=== PATIENT | female | born 1945 | race Caucasian/White ===

== ENCOUNTER 2018-07-30 01:16 | Inpatient (IN) | payer OTHER ==
[2018-07-30] VITALS (18 sets, daily range): BP systolic 89–107; BP diastolic 39–64
[~2018-07-30] VITALS: Ht 172.7 cm; Wt 80.1 kg
[2018-07-30 01:55] LABS: Basophils # (auto) 0.1 uL; Eosinophils # (auto) 0 uL; Eosinophils % (auto) 0.4 % (0.0-7.0); Hematocrit 22.1 % (36.0-46.0); Mean Corpuscular Volume 91.5 fL (80.0-100.0); Neutrophils # (auto) 4.8 uL; Nucleated Red Blood Cells % 0.2 %; White Blood Cell 6.9 10^3/uL (4.4-10.8)
[2018-07-30 01:57] LABS: Lymphocytes # (auto) 1.3 uL; Mean Corpuscular Hgb Conc. 30.6 g/dL (32.0-36.0); Monocytes # (auto) 0.7 uL; Monocytes % (auto) 10.7 % (0.0-12.0); Neutrophils % (auto) 69.9 % (37.0-80.0); Platelet Count (auto) 103 10^3/uL (140-450); Red Blood Cells 2.41 10^6/uL (4.0-5.20)
[2018-07-30 02:11] LABS: Albumin 2.2 g/dL (3.4-5.0); BUN/Creatinine Ratio 30.3; Calcium 9.2 mg/dL (8.5-10.1); Magnesium 2.1 mg/dL (1.6-2.6); Potassium 3.4 mmol/L (3.5-5.1)
[2018-07-30 02:14] LABS: Bilirubin, Total 1.1 mg/dL (0.2-1.0); Total Protein 6.6 g/dL (6.4-8.2)
[2018-07-30 02:27] LABS: Hemoglobin 6.7 g/dL (12.2-16.2)
[2018-07-30 03:56] LABS: INR 1.13 (0.9-1.15); Partial Thromboplastin Time 22.2 sec (23.78-33.04)
[2018-07-30] MEDS ORDERED: POTASSIUM EFFERVESENT TAB 25 MEQ PO ONE (10:15)
[2018-07-30 10:31] LABS: Urine Bacteria FEW /hpf (None Seen); Urine Blood Negative /uL (Negative); Urine Mucus FEW (None Seen); Urine Specific Gravity 1.014 (1.001-1.035); Urine WBC 1 /hpf (0 - 5)
[2018-07-30] MEDS ORDERED: LEVOFLOXACIN 250MG 50 ML IV ONE (10:45)
[2018-07-30] MEDS ORDERED: HYDROcodone-ACET 7.5/325MG TAB PO PRN (10:45)
[2018-07-30] MEDS ORDERED: LEVOTHYROXINE SODIUM 88 MCG TAB PO ONE (10:45)
[2018-07-30] MEDS ORDERED: SPIRONOLACTONE 25 MG TAB PO ONE (11:00)
[2018-07-30] MEDS ORDERED: TEMAZEPAM 15 MG CAP PO PRN (11:00)
[2018-07-30] MEDS ORDERED: DEXTROSE (50%) 50ML SYRG IV PRN (11:00)
[2018-07-30] MEDS ORDERED: MORPHINE SULF INJ 2 MG/ML SYRINGE 1ML IV PRN ×2 (11:00)
[2018-07-30] MEDS ORDERED: PANTOPRAZOLE 40 MG TAB PO ONE (11:00)
[2018-07-30] MEDS ORDERED: DOCUSATE SOD 100 MG CAP PO PRN (11:00)
[2018-07-30] MEDS ORDERED: POTASSIUM CHL 20 Meq TABLET PO ONE (11:00)
[2018-07-30] MEDS ORDERED: NITROGLYCERIN 0.4 MG SL TAB SL PRN (11:00)
[2018-07-30] MEDS ORDERED: FUROSEMIDE 40 MG TAB PO ONE (11:00)
[2018-07-30] MEDS ORDERED: ACETAMINOPHEN 325 MG TAB PO PRN (11:00)
[2018-07-30] MEDS: SODIUM CHLORIDE 0.9% 1,000 ML IV SCH (12:12)
[2018-07-30] MEDS: PANCREATIC ENZYMES 4200 UNIT CAP PO SCH ×2 (12:13→18:00)
[2018-07-30] MEDS: CALCIUM W/VIT D (600MG/400IU) TAB PO SCH ×2 (12:13→17:32)
[2018-07-30] MEDS: Glucerna Carbsteady SHAKE Vanilla 8oz PO SCH ×3 (12:13→22:00)
[2018-07-30] MEDS: InsuLIN REG 1unit/0.01ml Soln (100units/ml) SC SCH ×3 (12:23→22:24)
[2018-07-30] MEDS: ACCU-CHEK COMFORT CURVE STRIP VI SCH ×3 (12:24→22:18)
[2018-07-30 12:57] LABS: Lactic Acid w/Reflex 2.5 mmol/L (0.4-2.0)
[2018-07-30] MEDS ORDERED: PERCOT PO (14:49)
[2018-07-30] MEDS ORDERED: FERR27TA2 PO (14:49)
[2018-07-30] MEDS ORDERED: METF-370 PO (14:49)
[2018-07-30] MEDS ORDERED: MULTLIQ38 OR (14:49)
[2018-07-30] MEDS ORDERED: PANC3600 OR (14:49)
[2018-07-30] MEDS ORDERED: ASPI81TA27 PO (14:49)
[2018-07-30] MEDS ORDERED: LEVO88TA4 PO (14:49)
[2018-07-30] MEDS ORDERED: FURO40TA4 PO (14:49)
[2018-07-30] MEDS ORDERED: POTA10TA51 PO (14:49)
[2018-07-30] MEDS: CLINDAMYCIN 300MG IV 50 ML IV SCH ×2 (15:59→23:19)
[2018-07-30] MEDS: metroNIDAZOLE 500MG/100ML 100 ML IV SCH ×2 (17:03→22:04)
[2018-07-30 17:20] LABS: Hematocrit 27.7 % (36.0-46.0); Hemoglobin 9.1 g/dL (12.2-16.2)
[2018-07-30] MEDS: FERROUS SULFATE 325 MG TAB PO SCH (17:32)
[2018-07-30] MEDS: FUROSEMIDE 40 MG TAB PO SCH (17:33)
[2018-07-30 17:36] LABS: Lactic Acid w/Reflex 3.6 mmol/L (0.4-2.0)
[2018-07-30 17:44] LABS: BUN/Creatinine Ratio 27.9; Calcium 9.1 mg/dL (8.5-10.1); Potassium 3.4 mmol/L (3.5-5.1)
[2018-07-30] MEDS ORDERED: ACETAMINOPHEN PO SCH (22:00)
[2018-07-30] MEDS ORDERED: OXYCODONE PO SCH (22:00)
[2018-07-30] MEDS ORDERED: FAMOTIDINE 20 MG TAB PO SCH (22:00)
[2018-07-30] MEDS: ASCORBIC ACID 500 MG TAB PO SCH (22:00)
[2018-07-30 22:38] LABS: Hematocrit 27.6 % (36.0-46.0)
[2018-07-31 04:53] VITALS: BP 87/48
[2018-07-31] MEDS: metroNIDAZOLE 500MG/100ML 100 ML IV SCH ×3 (05:21→22:21)
[2018-07-31] MEDS: Glucerna Carbsteady SHAKE Vanilla 8oz PO SCH ×4 (05:21→22:00)
[2018-07-31] MEDS: FUROSEMIDE 40 MG TAB PO SCH ×2 (06:00→18:00)
[2018-07-31 06:12] LABS: Basophils # (auto) 0 uL; Basophils % (auto) 0.3 % (0.0-2.0); Eosinophils # (auto) 0.1 uL; Eosinophils % (auto) 0.9 % (0.0-7.0); Hematocrit 26.9 % (36.0-46.0); Hemoglobin 8.7 g/dL (12.2-16.2); Lymphocytes # (auto) 1.3 uL; Lymphocytes % (auto) 19.8 % (10.0-50.0); Mean Corpuscular Hemoglobin 28.3 pg (28.0-32.0); Mean Corpuscular Hgb Conc. 32.5 g/dL (32.0-36.0); Monocytes # (auto) 0.8 uL; Monocytes % (auto) 12.2 % (0.0-12.0); Neutrophils # (auto) 4.5 uL; Neutrophils % (auto) 66.8 % (37.0-80.0); Nucleated Red Blood Cells % 0.5 %; Platelet Count (auto) 115 10^3/uL (140-450); Red Blood Cells 3.09 10^6/uL (4.0-5.20); Red Cell Distribution Width 18.7 % (11.8-14.3); White Blood Cell 6.8 10^3/uL (4.4-10.8)
[2018-07-31 06:36] LABS: Potassium 3.7 mmol/L (3.5-5.1)
[2018-07-31] MEDS: LEVOTHYROXINE SODIUM 88 MCG TAB PO SCH (06:36)
[2018-07-31] MEDS: ACCU-CHEK COMFORT CURVE STRIP VI SCH ×4 (06:43→22:22)
[2018-07-31] MEDS: InsuLIN REG 1unit/0.01ml Soln (100units/ml) SC SCH ×4 (06:50→22:22)
[2018-07-31 06:52] LABS: Albumin 2.3 g/dL (3.4-5.0); BUN/Creatinine Ratio 27.3; Bilirubin, Total 1.4 mg/dL (0.2-1.0); Calcium 9.7 mg/dL (8.5-10.1); Total Protein 6.7 g/dL (6.4-8.2)
[2018-07-31] MEDS: PANCREATIC ENZYMES 4200 UNIT CAP PO SCH ×3 (08:00→18:00)
[2018-07-31 08:57] VITALS: BP 100/60
[2018-07-31] MEDS: CALCIUM W/VIT D (600MG/400IU) TAB PO SCH ×3 (09:26→18:00)
[2018-07-31] MEDS: cefTRIAXone 1GM/10ml IVPUSH 10 ML IV SCH (09:26)
[2018-07-31] MEDS: FERROUS SULFATE 325 MG TAB PO SCH ×2 (09:27→18:00)
[2018-07-31] MEDS ORDERED: LEVOFLOXACIN 250MG 50 ML IV SCH (10:00)
[2018-07-31] MEDS: ZINC SULFATE 220mg CAP or TAB PO SCH (10:13)
[2018-07-31] MEDS: ASCORBIC ACID 500 MG TAB PO SCH ×2 (10:13→22:22)
[2018-07-31] MEDS: POTASSIUM CHL 20 Meq TABLET PO SCH (10:13)
[2018-07-31] MEDS: MULTIPLE VITAMIN TAB PO SCH (10:13)
[2018-07-31] MEDS: SPIRONOLACTONE 25 MG TAB PO SCH (10:14)
[2018-07-31] MEDS: PANTOPRAZOLE 40 MG TAB PO SCH (10:14)
[2018-07-31] MEDS: SODIUM CHLORIDE 0.9% 1,000 ML IV SCH (10:54)
[2018-07-31] MEDS: ONDANSETRON HCL 4 MG/2 ML VIAL IV PRN ×2 (11:34→21:35)
[2018-07-31 12:38] VITALS: BP 90/50
[2018-07-31] MEDS: OXYCODONE W/ ACETAMINOPHEN 5/325MG TABLET PO SCH ×2 (13:45→22:21)
[2018-07-31 17:36] VITALS: BP 90/58
[2018-07-31 22:00] VITALS: BP 86/44
[2018-07-31 22:55] VITALS: BP 89/51
[2018-08-01 05:30] VITALS: BP 89/54
[2018-08-01 05:48] VITALS: BP 83/41
[2018-08-01] MEDS: FUROSEMIDE 40 MG TAB PO SCH ×2 (06:00→17:44)
[2018-08-01] MEDS: metroNIDAZOLE 500MG/100ML 100 ML IV SCH ×3 (06:03→21:50)
[2018-08-01] MEDS: OXYCODONE W/ ACETAMINOPHEN 5/325MG TABLET PO SCH ×3 (06:04→21:51)
[2018-08-01] MEDS: Glucerna Carbsteady SHAKE Vanilla 8oz PO SCH ×4 (06:04→21:51)
[2018-08-01] MEDS: ACCU-CHEK COMFORT CURVE STRIP VI SCH ×4 (06:05→22:02)
[2018-08-01] MEDS: LEVOTHYROXINE SODIUM 88 MCG TAB PO SCH (06:05)
[2018-08-01] MEDS: InsuLIN REG 1unit/0.01ml Soln (100units/ml) SC SCH ×4 (06:06→22:02)
[2018-08-01 08:17] LABS: BUN/Creatinine Ratio 27.2; Calcium 8.9 mg/dL (8.5-10.1); Magnesium 2.3 mg/dL (1.6-2.6); Potassium 3.4 mmol/L (3.5-5.1)
[2018-08-01] MEDS: FERROUS SULFATE 325 MG TAB PO SCH ×2 (08:26→17:42)
[2018-08-01] MEDS: CALCIUM W/VIT D (600MG/400IU) TAB PO SCH ×3 (08:26→17:42)
[2018-08-01] MEDS: cefTRIAXone 1GM/10ml IVPUSH 10 ML IV SCH (08:27)
[2018-08-01] MEDS: PANCREATIC ENZYMES 4200 UNIT CAP PO SCH ×3 (08:27→17:45)
[2018-08-01 09:09] VITALS: BP 80/48
[2018-08-01 09:56] LABS: Basophils # (auto) 0 uL; Basophils % (auto) 0.1 % (0.0-2.0); Eosinophils # (auto) 0 uL; Hemoglobin 7.8 g/dL (12.2-16.2); Mean Corpuscular Volume 86.8 fL (80.0-100.0); Monocytes # (auto) 0.7 uL; Nucleated Red Blood Cells % 0.2 %
[2018-08-01 10:00] LABS: Hematocrit 24.3 % (36.0-46.0); Lymphocytes # (auto) 1.5 uL; Lymphocytes % (auto) 16.4 % (10.0-50.0); Mean Corpuscular Hemoglobin 27.9 pg (28.0-32.0); Mean Corpuscular Hgb Conc. 32.1 g/dL (32.0-36.0); Monocytes % (auto) 7.1 % (0.0-12.0); Neutrophils % (auto) 76.4 % (37.0-80.0); Red Cell Distribution Width 18.9 % (11.8-14.3); White Blood Cell 9.2 10^3/uL (4.4-10.8)
[2018-08-01 10:03] LABS: Platelet Count (auto) 62 10^3/uL (140-450)
[2018-08-01] MEDS: ZINC SULFATE 220mg CAP or TAB PO SCH (10:19)
[2018-08-01] MEDS: SPIRONOLACTONE 25 MG TAB PO SCH (10:19)
[2018-08-01] MEDS: MULTIPLE VITAMIN TAB PO SCH (10:20)
[2018-08-01] MEDS: POTASSIUM CHL 20 Meq TABLET PO SCH (10:20)
[2018-08-01] MEDS: PANTOPRAZOLE 40 MG TAB PO SCH (10:20)
[2018-08-01] MEDS: ASCORBIC ACID 500 MG TAB PO SCH ×2 (10:20→21:51)
[2018-08-01] MEDS: ONDANSETRON HCL 4 MG/2 ML VIAL IV PRN (10:24)
[2018-08-01 13:00] VITALS: BP 90/54
[2018-08-01] MEDS: SODIUM CHLORIDE 0.9% 1,000 ML IV SCH (14:10)
[2018-08-01 17:35] VITALS: BP 102/54
[2018-08-01 21:59] VITALS: BP 95/55
[2018-08-02 05:15] VITALS: BP 96/58
[2018-08-02 05:58] LABS: Basophils # (auto) 0 uL; Basophils % (auto) 0.2 % (0.0-2.0); Eosinophils # (auto) 0.1 uL; Hemoglobin 8.2 g/dL (12.2-16.2); Lymphocytes # (auto) 1.4 uL
[2018-08-02] MEDS: Glucerna Carbsteady SHAKE Vanilla 8oz PO SCH (06:00)
[2018-08-02 06:01] LABS: Eosinophils % (auto) 0.7 % (0.0-7.0); Lymphocytes % (auto) 17.3 % (10.0-50.0); Mean Corpuscular Hemoglobin 28.7 pg (28.0-32.0); Mean Corpuscular Hgb Conc. 32.8 g/dL (32.0-36.0); Mean Corpuscular Volume 87.7 fL (80.0-100.0); Monocytes % (auto) 12.4 % (0.0-12.0); Neutrophils # (auto) 5.5 uL; Neutrophils % (auto) 69.4 % (37.0-80.0); Nucleated Red Blood Cells % 0.1 %; Platelet Count (auto) 61 10^3/uL (140-450); Red Blood Cells 2.85 10^6/uL (4.0-5.20); Red Cell Distribution Width 18.7 % (11.8-14.3)
[2018-08-02] MEDS: FUROSEMIDE 40 MG TAB PO SCH ×2 (06:18→18:05)
[2018-08-02] MEDS: metroNIDAZOLE 500MG/100ML 100 ML IV SCH ×3 (06:18→21:13)
[2018-08-02] MEDS: LEVOTHYROXINE SODIUM 88 MCG TAB PO SCH (06:19)
[2018-08-02] MEDS: ACCU-CHEK COMFORT CURVE STRIP VI SCH ×4 (06:19→21:20)
[2018-08-02] MEDS: OXYCODONE W/ ACETAMINOPHEN 5/325MG TABLET PO SCH ×3 (06:19→21:13)
[2018-08-02 06:29] LABS: BUN/Creatinine Ratio 27.3; Calcium 8.6 mg/dL (8.5-10.1); Magnesium 2.2 mg/dL (1.6-2.6); Potassium 3.1 mmol/L (3.5-5.1)
[2018-08-02] MEDS: InsuLIN REG 1unit/0.01ml Soln (100units/ml) SC SCH ×4 (07:02→21:27)
[2018-08-02] MEDS: FERROUS SULFATE 325 MG TAB PO SCH ×2 (08:00→14:54)
[2018-08-02] MEDS: CALCIUM W/VIT D (600MG/400IU) TAB PO SCH ×3 (08:00→18:00)
[2018-08-02] MEDS: PANCREATIC ENZYMES 4200 UNIT CAP PO SCH ×3 (08:00→18:00)
[2018-08-02 09:00] VITALS: BP 90/51
[2018-08-02] MEDS: cefTRIAXone 1GM/10ml IVPUSH 10 ML IV SCH (09:29)
[2018-08-02] MEDS: MULTIPLE VITAMIN TAB PO SCH (10:00)
[2018-08-02 13:00] VITALS: BP 108/64
[2018-08-02] MEDS: ZINC SULFATE 220mg CAP or TAB PO SCH (14:53)
[2018-08-02] MEDS: ASCORBIC ACID 500 MG TAB PO SCH ×2 (14:54→21:13)
[2018-08-02] MEDS: POTASSIUM CHL 20 Meq TABLET PO SCH (14:55)
[2018-08-02] MEDS: PANTOPRAZOLE 40 MG TAB PO SCH (14:55)
[2018-08-02] MEDS: SPIRONOLACTONE 25 MG TAB PO SCH (14:56)
[2018-08-02] MEDS: SODIUM CHLORIDE 0.9% 1,000 ML IV SCH (14:56)
[2018-08-02 17:00] VITALS: BP 105/60
[2018-08-02] MEDS ORDERED: MORPHINE SULF INJ 2 MG/ML SYRINGE 1ML IV PRN ×2 (17:15)
[2018-08-02] MEDS ORDERED: Glucerna Carbsteady SHAKE Vanilla 8oz PO SCH (18:00)
[2018-08-02] MEDS ORDERED: ENSURE CLEAR Mixed Berry 8oz Carton PO SCH (18:00)
[2018-08-02 22:00] VITALS: BP 93/59
[2018-08-03 05:24] VITALS: BP 109/55
[2018-08-03] MEDS: metroNIDAZOLE 500MG/100ML 100 ML IV SCH ×2 (06:38→14:38)
[2018-08-03] MEDS: FUROSEMIDE 40 MG TAB PO SCH (06:39)
[2018-08-03] MEDS: LEVOTHYROXINE SODIUM 88 MCG TAB PO SCH (06:40)
[2018-08-03] MEDS: ACCU-CHEK COMFORT CURVE STRIP VI SCH ×2 (06:40→11:30)
[2018-08-03] MEDS: InsuLIN REG 1unit/0.01ml Soln (100units/ml) SC SCH ×2 (06:40→11:30)
[2018-08-03] MEDS: OXYCODONE W/ ACETAMINOPHEN 5/325MG TABLET PO SCH ×2 (06:40→14:41)
[2018-08-03 09:00] VITALS: BP 89/51
[2018-08-03] MEDS: ONDANSETRON HCL 4 MG/2 ML VIAL IV PRN (09:10)
[2018-08-03 09:14] LABS: INR 1.15 (0.9-1.15); Partial Thromboplastin Time 27.8 sec (23.78-33.04); Prothrombin Time 12.2 sec (9.27-12.13)
[2018-08-03] MEDS: CALCIUM W/VIT D (600MG/400IU) TAB PO SCH ×2 (09:30→12:17)
[2018-08-03] MEDS: FERROUS SULFATE 325 MG TAB PO SCH (09:30)
[2018-08-03] MEDS: PANCREATIC ENZYMES 4200 UNIT CAP PO SCH ×2 (09:31→12:19)
[2018-08-03] MEDS: cefTRIAXone 1GM/10ml IVPUSH 10 ML IV SCH (09:32)
[2018-08-03] MEDS: PANTOPRAZOLE 40 MG TAB PO SCH (09:49)
[2018-08-03] MEDS: POTASSIUM CHL 20 Meq TABLET PO SCH (09:49)
[2018-08-03] MEDS: ZINC SULFATE 220mg CAP or TAB PO SCH (09:49)
[2018-08-03] MEDS: MULTIPLE VITAMIN TAB PO SCH (09:49)
[2018-08-03] MEDS: ASCORBIC ACID 500 MG TAB PO SCH (09:50)
[2018-08-03] MEDS: SODIUM CHLORIDE 0.9% 1,000 ML IV SCH (10:54)
[2018-08-03 13:00] VITALS: BP 96/60
[2018-08-03 13:48] VITALS: BP 109/55
== END 2018-08-03 15:56 | disposition hospice, home (50) | DRG 435 ==
LOC: ER 01:16 → EDBD 01:16 → TELE 01:17 → TELE-WESTW 13:31
PROVIDERS: ADMIT Internal Medicine; ATTEND Internal Medicine
PROC: 30233N1 Transfusion of Nonautologous Red Blood Cells into Peripheral Vein, Percutaneous Approach (ICD-10-PCS; principal; 2018-07-30)
PROC: CF2YYZZ Tomographic (Tomo) Nuclear Medicine Imaging of Hepatobiliary System and Pancreas using Other Radionuclide (ICD-10-PCS; 2018-07-30)
DX: C25.9 Malignant neoplasm of pancreas, unspecified (principal); E43 Unspecified severe protein-calorie malnutrition; L03.115 Cellulitis of right lower limb; L97.329 Non-pressure chronic ulcer of left ankle with unspecified severity; N17.9 Acute kidney failure, unspecified; L03.116 Cellulitis of left lower limb; E87.2 Acidosis; I50.32 Chronic diastolic (congestive) heart failure; N13.6 Pyonephrosis; K80.11 Calculus of gallbladder with chronic cholecystitis with obstruction; K83.0 Cholangitis; K21.9 Gastro-esophageal reflux disease without esophagitis; E11.22 Type 2 diabetes mellitus with diabetic chronic kidney disease; N18.3 Chronic kidney disease, stage 3 (moderate); E11.622 Type 2 diabetes mellitus with other skin ulcer; E87.6 Hypokalemia; D64.9 Anemia, unspecified; E03.9 Hypothyroidism, unspecified; F17.210 Nicotine dependence, cigarettes, uncomplicated; G89.4 Chronic pain syndrome; B96.1 Klebsiella pneumoniae [K. pneumoniae] as the cause of diseases classified elsewhere; Z83.3 Family history of diabetes mellitus; Z68.26 Body mass index [BMI] 26.0-26.9, adult; Z88.0 Allergy status to penicillin; Z88.2 Allergy status to sulfonamides; Z88.8 Allergy status to other drugs, medicaments and biological substances; Z91.018 Allergy to other foods
CPT/HCPCS: 36415; 71046; 74176; 78226; 80048; 80053; 81001; 82962; 83036; 83605; 83690; 83735; 83880; 84443; 84484; 85014; 85018; 85025; 85610; 85730; 86850; 86900; 86901; 86920; 87040; 87081; 87086; 87088; 87186; 93005; 93306; 94761; 96374; 97110; 97116; 97530; J0696; J1815; J2405; J3490

== ENCOUNTER 2018-08-13 22:13 | Inpatient (IN) | payer OTHER ==
[~2018-08-13] VITALS: Ht 165.1 cm; Wt 85.7 kg
[~2018-08-13 22:13] MED LIST: ASPI81TA27 PO; FERR27TA2 PO; FURO40TA4 PO; LEVO88TA4 PO; METF-370 PO; MULTLIQ38 OR; PANC3600 OR; PERCOT PO; POTA10TA51 PO
[2018-08-14] VITALS (8 sets, daily range): BP systolic 92–108; BP diastolic 52–62
[2018-08-14] LABS: Basophils # (auto) 0.1 uL; Basophils % (auto) 0.7 % (0.0-2.0); Eosinophils # (auto) 0 uL; Eosinophils % (auto) 0.1 % (0.0-7.0); Hematocrit 30.3 % (36.0-46.0); Hemoglobin 9.4 g/dL (12.2-16.2); Lymphocytes # (auto) 0.7 uL; Lymphocytes % (auto) 8.5 % (10.0-50.0); Mean Corpuscular Hemoglobin 28.4 pg (28.0-32.0); Mean Corpuscular Hgb Conc. 31.1 g/dL (32.0-36.0); Mean Corpuscular Volume 91.3 fL (80.0-100.0); Monocytes # (auto) 0.5 uL; Monocytes % (auto) 6.2 % (0.0-12.0); Neutrophils # (auto) 7.2 uL; Neutrophils % (auto) 84.5 % (37.0-80.0); Nucleated Red Blood Cells % 0.1 %; Platelet Count (auto) 141 10^3/uL (140-450); Red Blood Cells 3.32 10^6/uL (4.0-5.20); Red Cell Distribution Width 18.2 % (11.8-14.3); White Blood Cell 8.5 10^3/uL (4.4-10.8)
[2018-08-14 00:09] LABS: Albumin 2.3 g/dL (3.4-5.0); Anion Gap 13 (5-15); BUN/Creatinine Ratio 12.4; Blood Urea Nitrogen 46 mg/dL (7-18); Calcium 10.2 mg/dL (8.5-10.1); Carbon Dioxide 21 mmol/L (21-32); Chloride 98 mmol/L (98-107); GFR African American 15 mL/min; GFR Non-African American 13 mL/min; Glucose 154 mg/dL (74-106); Magnesium 2.1 mg/dL (1.6-2.6); Potassium 4.8 mmol/L (3.5-5.1); Sodium 132 mmol/L (136-145)
[2018-08-14 00:15] LABS: Alanine Aminotransferase 17 U/L (13-56); Alkaline Phosphatase 185 U/L (45-117); Aspartate Aminotransferase 26 U/L (15-37); Bilirubin, Total 1.1 mg/dL (0.2-1.0)
[2018-08-14 01:46] LABS: Urine Bacteria FEW /hpf (None Seen); Urine Blood Negative /uL (Negative); Urine Mucus FEW (None Seen); Urine Specific Gravity 1.012 (1.001-1.035); Urine WBC 2 /hpf (0 - 5)
[2018-08-14] MEDS ORDERED: ACETAMINOPHEN 325 MG TAB PO PRN (02:00)
[2018-08-14] MEDS ORDERED: ONDANSETRON HCL 4 MG/2 ML VIAL IV PRN (02:00)
[2018-08-14] MEDS ORDERED: HYDROcodone-ACET 5/325MG TAB PO PRN (02:00)
[2018-08-14] MEDS ORDERED: TEMAZEPAM 15 MG CAP PO PRN (02:00)
[2018-08-14] MEDS ORDERED: DEXTROSE (50%) 50ML SYRG IV PRN (02:00)
[2018-08-14 02:03] LABS: Alcohol, Urine < 3.0 mg/dL (0-5); Amphetamine Screen, Urine NEGATIVE (NEGATIVE); Barbiturate Scree,Urine NEGATIVE (NEGATIVE); Benzodiazephine Screen, Urine NEGATIVE (NEGATIVE); Cannabinoid Screen, Urine NEGATIVE (NEGATIVE); Cocaine Screen, Urine NEGATIVE (NEGATIVE); Opiate Scree,Urine NEGATIVE (NEGATIVE); Phencyclidine Screen, Urine NEGATIVE (NEGATIVE)
[2018-08-14] MEDS ORDERED: FUROSEMIDE 20 MG/2 ML VIAL IV ONE (02:30)
[2018-08-14] MEDS ORDERED: ENOXAPARIN SOD 100 MG/1 ML SYRINGE SC ONE ×2 (03:00→03:45)
[2018-08-14 03:36] LABS: Lactic Acid w/Reflex 3.5 mmol/L (0.4-2.0)
[2018-08-14] MEDS: CLINDAMYCIN 600MG IV 50 ML IV SCH ×3 (05:22→22:00)
[2018-08-14] MEDS: FUROSEMIDE 20 MG/2 ML VIAL IV SCH ×2 (05:23→18:00)
[2018-08-14] MEDS: InsuLIN REG 1unit/0.01ml Soln (100units/ml) SC SCH ×3 (05:23→17:50)
[2018-08-14] MEDS: ACCU-CHEK COMFORT CURVE STRIP VI SCH ×3 (05:24→17:42)
[2018-08-14] MEDS ORDERED: SODIUM CHLORIDE 0.9% 500 ML IV ONE (05:45)
[2018-08-14] MEDS ORDERED: LEVOTHYROXINE SODIUM 88 MCG TAB PO SCH (07:00)
[2018-08-14] MEDS ORDERED: PANTOPRAZOLE 40 MG TAB PO SCH (07:30)
[2018-08-14] MEDS ORDERED: LEVOFLOXACIN 500MG 100 ML IV ONE (07:30)
[2018-08-14] MEDS: FERROUS SULFATE 325 MG TAB PO SCH ×2 (08:17→17:43)
[2018-08-14] MEDS ORDERED: WARPRX PO (15:38)
[2018-08-14] MEDS ORDERED: CLIN1CAP4 PO (15:38)
[2018-08-14] MEDS ORDERED: ENOX80IN SC (15:38)
[2018-08-14] MEDS ORDERED: LEVO250T19 PO (15:38)
[2018-08-15] MEDS: InsuLIN REG 1unit/0.01ml Soln (100units/ml) SC SCH
[2018-08-15] MEDS: ACCU-CHEK COMFORT CURVE STRIP VI SCH (00:23)
[2018-08-15] MEDS ORDERED: ENOXAPARIN SOD 100 MG/1 ML SYRINGE SC SCH (06:00)
[2018-08-15] MEDS ORDERED: LEVOFLOXACIN 250MG 50 ML IV SCH (06:00)
== END 2018-08-15 00:15 | disposition hospice, home (50) | DRG 682 ==
LOC: EDBD 22:13 → ER 22:13 → EDUNIT# 22:13 → OVERFLOW 22:14 → CENTRAL 08-14 03:37
PROVIDERS: ADMIT Nurse Practitioner; ATTEND Internal Medicine
DX: N17.0 Acute kidney failure with tubular necrosis (principal); I50.33 Acute on chronic diastolic (congestive) heart failure; I82.413 Acute embolism and thrombosis of femoral vein, bilateral; L03.115 Cellulitis of right lower limb; C25.9 Malignant neoplasm of pancreas, unspecified; L03.116 Cellulitis of left lower limb; E44.0 Moderate protein-calorie malnutrition; I82.433 Acute embolism and thrombosis of popliteal vein, bilateral; N18.5 Chronic kidney disease, stage 5; D63.8 Anemia in other chronic diseases classified elsewhere; E11.22 Type 2 diabetes mellitus with diabetic chronic kidney disease; N18.3 Chronic kidney disease, stage 3 (moderate); R62.7 Adult failure to thrive; F17.210 Nicotine dependence, cigarettes, uncomplicated; K21.9 Gastro-esophageal reflux disease without esophagitis; Z88.0 Allergy status to penicillin; Z88.2 Allergy status to sulfonamides; Z88.8 Allergy status to other drugs, medicaments and biological substances
CPT/HCPCS: 36415; 51702; 70450; 71045; 80053; 80307; 81001; 82962; 83605; 83735; 83880; 84484; 85025; 85379; 87040; 87081; 87086; 93970; 94761; J1815; J1956; J3490